=== PATIENT | male | born 1960 | race Caucasian/White ===

== ENCOUNTER 2019-10-05 12:56 | Outpatient (CLI) | payer MEDICAID ==
--- NOTE | 2019-10-05 21:15 | Consultation ---
DATE OF CONSULTATION: 10/05/2019 CONSULTING PHYSICIAN: Nnamdi Reynoso M.D. CHIEF COMPLAINT: Referral from Dr. Butt, GI doctor after having endoscopy and colonoscopy. He is not exactly sure what was the reason. PAST MEDICAL HISTORY: 1. Hypertension. 2. Hepatitis C. 3. BPH. PAST SURGICAL HISTORY: Hernia repair, gallbladder surgery, and appendectomy. MEDICATIONS: Please see medication reconciliation list. FAMILY HISTORY: No family history of malignancy. SOCIAL HISTORY: The patient drinks beer almost daily, about 3 or 4. He denies any tobacco usage, but he admits to using THC and also methamphetamine. He is homeless. ALLERGIES: No known allergies. REVIEW OF SYSTEMS: A 10-point review of systems was performed and pertinent positives in HPI. PHYSICAL EXAMINATION: GENERAL: A well-developed male, in no acute distress. HEENT: Normocephalic and atraumatic. Sclerae are anicteric. NECK: Supple. No obvious lymphadenopathy. CARDIOVASCULAR: Regular rate and rhythm. Plus S1 and S2. LUNGS: Clear to auscultation bilaterally. ABDOMEN: Positive bowel sounds. Soft and nontender. No rebound. No guarding. No peritoneal sign. EXTREMITIES: No cyanosis, no clubbing, no edema. ASSESSMENT AND PLAN: Hepatitis C. The patient never been treated for hepatitis C. The patient was told we are going to try to figure out why he is here, for which GI procedure he is here today and after we figure it out, he needs to come back for hepatitis C management and treatment. Meanwhile, we are going to try to get the records from Dr. Butt office regarding endoscopy and colonoscopy. It seems that he has a submucosal lesion. According to him, that they could not remove. So until we get those records exactly what kind of endoscopic ultrasound or what kind of procedure he needs, we are going to wait. He was told to come back in two weeks while we are trying to get the records from Dr. Butt's office. Nnamdi Reynoso M.D. DR: BHUPINDER JOB#: [id number] CC:
[2019-10-10] MEDS ORDERED: LISINOPRIL20 MG ORAL (14:27)
[2019-10-10] MEDS ORDERED: FLOMAX0.4 MG ORAL (14:27)
[2019-10-10] MEDS ORDERED: OMEPRAZOLE20 M2 ORAL (14:27)
[2019-10-10] MEDS ORDERED: GABAPENTIN300 MG ORAL (14:27)
[2019-10-10] MEDS ORDERED: EC-NAPROXEN500 MG PO (14:27)
== END 2019-10-05 14:56 | disposition home or self-care (01) ==
LOC: PAN 12:56
DX: B19.20 Unspecified viral hepatitis C without hepatic coma (principal); I10 Essential (primary) hypertension; Z90.89 Acquired absence of other organs; Z59.0 Homelessness
CPT/HCPCS: G0463

== ENCOUNTER 2019-10-19 12:57 | Outpatient (CLI) | payer MEDICAID ==
[~2019-10-19 12:57] MED LIST: EC-NAPROXEN500 MG PO; FLOMAX0.4 MG ORAL; GABAPENTIN300 MG ORAL; LISINOPRIL20 MG ORAL; OMEPRAZOLE20 M2 ORAL
--- NOTE | 2019-10-19 13:24 | General Progress Note ---
Assessment/Plan Assessment/Plan: hep C rectal sub mucosal lesion gastritis plan rectal EUS fu post above for hep c treatment Subjective ROS Limited/Unobtainable: Yes Allergies: Coded Allergies: No Known Allergies (Unverified , 10/10/19) Objective General Appearance: alert EENT: normal ENT inspection Neck: supple Cardiovascular: normal rate Respiratory/Chest: lungs clear Abdomen: normal bowel sounds, non tender, soft Extremities: non-tender Nnamdi Reynoso MD Oct 19, 2019 13:24
== END 2019-10-19 14:57 | disposition home or self-care (01) ==
LOC: PAN 12:57
DX: K29.70 Gastritis, unspecified, without bleeding (principal); Z86.19 Personal history of other infectious and parasitic diseases; K63.9 Disease of intestine, unspecified
CPT/HCPCS: 99212

== ENCOUNTER 2020-05-13 09:22 | Day surgery (SDC) | payer MEDICAID ==
[2020-05-13] VITALS (8 sets, daily range): BP systolic 145–166; BP diastolic 77–85
[~2020-05-13] VITALS: Ht 167.6 cm; Wt 63.5 kg
--- NOTE | 2020-05-13 06:45 | Anethesia Preoperative Eval ---
Anesthesia Pre-op PMH/ROS General Date of Evaluation: May 13, 2020 Time of Evaluation: 06:43 Anesthesiologist: jomar ASA Score: ASA 3 Mallampati Score Class I : Soft palate, uvula, fauces, pillars visible Class II: Soft palate, uvula, fauces visible Class III: Soft palate, base of uvula visible Class IV: Only hard plate visible Mallampati Classification: Class II Surgeon: yehuda Diagnosis: rectal submucosal polyps Surgical Procedure: eus Anesthesia History: none Social History: alcohol use Family History: no anesthesia problems Allergies: Coded Allergies: No Known Allergies (Unverified , 10/10/19) Medications: see eMAR Patient NPO?: Yes Past Medical History Cardiovascular: Reports: HTN Gastrointestinal/Genitourinary: Reports: GERD, other - hep c, gastritis, hiatal hernia, gallbladder dz PSxH Narrative: appendectomy, endoscopy Anesthesia Pre-op Phys. Exam Physician Exam Last Vital Signs Date Time Temp Pulse Resp B/P (MAP) Pulse Ox O2 Delivery O2 Flow Rate FiO2 05/13/20 09:53 97.5 48 18 145/79 99 Room Air Constitutional: NAD Neurologic: CN 2-12 intact Cardiovascular: RRR Respiratory: CTA Gastrointestinal: S/NT/ND Airway Exam Mallampati Score: Class II MO: limited Neck: flexible TMD: 2fb ROM: limited Anesthesia Pre-op A/P Labs Microbiology Date/Time Source Procedure Growth Status 05/10/20 09:20 Nasopharynx SARS-CoV-2 RdRp Gene Assay - Final Complete Risk Assessment & Plan Assessment: asa3 Plan: mac Status Change Before Surgery: No Pre-Antibiotics Drug: Shante Sauer MD May 13, 2020 06:45
[~2020-05-13 09:22] MED LIST changes: +Atropine Inj 1mg/10ml Syr IVP PRN; +DiphenhydrAMINE 50mg/ml Inj IVP PRN; +LR 1000ml 1,000 ML IVLG SCH; +Labetalol 5mg/ml 20ml vial IV PRN; +Midazolam 2mg/2ml Inj IVP PRN; +fentaNYL 100 mcg/2 mL IV PRN
[2020-05-13] MEDS ORDERED: LR 1000ml ONE (10:30)
[2020-05-13] MEDS ORDERED: Lidocaine 1% MPF 10mg/ml 5ml ONE (10:30)
--- NOTE | 2020-05-13 10:32 | Short Stay Surgery H&P ---
History of Present Illness History of Present Illness Chief Complaint see office consult note HPI Angelo Hutchins is a 60 year old male who was admitted on for Rectal Sub- Mucousal Polyps Patient History Allergies: Coded Allergies: No Known Allergies (Unverified , 10/10/19) Medication History Scheduled Gabapentin* (Gabapentin*), 900 MG ORAL THREE TIMES A DAY, (Reported) Lisinopril (Lisinopril*), 40 MG ORAL DAILY, (Reported) Naproxen (EC-Naproxen), 500 MG PO DAILY, (Reported) Omeprazole (Omeprazole), 20 MG ORAL DAILY, (Reported) Tamsulosin HCl (Flomax), 0.4 MG ORAL DAILY, (Reported) Physical Exam Vital Signs Last Vital Signs Date Time Temp Pulse Resp B/P (MAP) Pulse Ox O2 Delivery O2 Flow Rate FiO2 05/13/20 09:53 97.5 48 18 145/79 99 Room Air Plan Attestation Are the patient's medical conditions optimized for surgery? Nnamdi Reynoso MD May 13, 2020 10:32
--- NOTE | 2020-05-13 10:32 | Pre-Procedure Note/Attestation ---
Pre-Procedure Note/Attestation Complete Prior to Procedure Planned Procedure: not applicable Procedure Narrative: flex sig and rectal EUS Indications for Procedure Pre-Operative Diagnosis: rectal lesion Attestation I attest that I discussed the nature of the procedure; its benefits; risks and complications; and alternatives (and the risks and benefits of such alternatives), prior to the procedure, with the patient (or the patient's legal product support representative). I attest that, if there was a reasonable possibility of needing a blood transfusion, the patient (or the patient's legal product support representative) was given the [facility] standardized written summary, pursuant to the [place] Blood Safety Act ([place] Health and Safety Code # 1645, as amended). I attest that I re-evaluated the patient just prior to the surgery and that there has been no change in the patient's H&P, except as documented below: Nnamdi Reynoso MD May 13, 2020 10:32
--- NOTE | 2020-05-13 11:13 | Endoscopy Procedure Note ---
Endoscopy Procedure Note General Indication for Procedure: rectal polyp Procedures Performed: flexible sigmoidoscopy, other - EUS Operative Findings/Diagnosis: rectal polyp Specimen: yes Pt Tolerated Procedure Well: Yes Anesthesia Anesthesiologist: hero crespo Anesthesia: MAC Inserted Devices Implant(s) used?: No GI Core Measures 50 yrs or older w/o bx or poly: Not Applicable 10yrs. F/U recommended: Not Applicable Nnamdi Reynoso MD May 13, 2020 11:13
--- NOTE | 2020-05-13 11:57 | Immediate Post-Op Evaluation ---
Immediate Post-Op Evalulation Immediate Post-Op Evalulation Procedure: flexible sigmoidoscopy, rectal eus Date of Evaluation: May 13, 2020 Time of Evaluation: 11:30 IV Fluids: 550ml lr Blood Products: none Estimated Blood Loss: negligible Blood Pressure Systolic: 155 Blood Pressure Diastolic: 84 Pulse Rate: 54 Respiratory Rate: 18 O2 Sat by Pulse Oximetry: 100 Temperature (Fahrenheit): 98.1 Pain Score (1-10): 0 Nausea: No Vomiting: No Complications none Patient Status: awake, reacts, patent Hydration Status: adequate Drug: Shante Sauer MD May 13, 2020 11:57
--- NOTE | 2020-05-13 11:58 | 48 Hour Post Anesthesia Eval ---
Post Anesthesia Evaluation Procedure: flexible sigmoidoscopy, rectal eus Date of Evaluation: May 13, 2020 Time of Evaluation: 11:32 Blood Pressure Systolic: 158 0: 85 Pulse Rate: 41 Respiratory Rate: 18 Temperature (Fahrenheit): 98.1 O2 Sat by Pulse Oximetry: 100 Airway: patent Nausea: No Vomiting: No Pain Intensity: 0 Hydration Status: adequate Cardiopulmonary Status: stable Mental Status/LOC: patient returned to baseline Post-Anesthesia Complications: none Follow-up care needed: N/A Shante Al MD May 13, 2020 11:58
--- NOTE | 2020-05-13 13:00 | Procedure Note ---
DATE OF PROCEDURE: 05/13/2020 SURGEON: Nnamdi Reynoso MD PROCEDURE: Flexible sigmoidoscopy, endoscopic ultrasound, rectal ultrasound. INDICATION: Rectal polyp. The procedure, risks, benefits, and possible consequences, including hemorrhage, aspiration, perforation and infection, and alternative treatments, were explained to the patient/legal guardian by Dr. Nnamdi Reynoso and the patient/legal guardian understood and accepted these risks. PROCEDURE IN DETAIL: After informed consent was obtained and the patient was adequately sedated, first rectal exam was performed, which was positive for internal hemorrhoids. Also, we can palpate a large prostate on rectal examination. Then, the upper scope was advanced from the rectum into the almost transverse colon. Prep was good. The patient had diverticulosis in the left colon. One diminutive polyp was seen in the rectum, which was removed with cold biopsy forceps technique. Retroflexion of rectum showed evidence of large internal hemorrhoids. There was also a submucosal lesion in the rectum. At this time, we removed the upper scope and introduced an EUS scope. Submucosal lesion was actually enlarged prostate pushing against the rectum. SUMMARY OF FINDINGS: 1. One rectal polyp removed, see above for details. 2. Large internal hemorrhoids. 3. Diverticulosis of left colon. 4. Enlarged prostate pushing against the rectal wall. RECOMMENDATIONS: 1. Follow path. 2. The patient to follow up with Dr. Butt, primary GI doctor, for management of hepatitis C. 3. The patient is to be seen by the urologist for enlarged prostate. Nnamdi Reynoso M.D. DR: Alvaro JOB#: [id number] CC:
== END 2020-05-13 12:50 | disposition home or self-care (01) ==
LOC: GAS 09:22
DX: K62.1 Rectal polyp (principal); K64.8 Other hemorrhoids; K57.90 Diverticulosis of intestine, part unspecified, without perforation or abscess without bleeding; N40.0 Benign prostatic hyperplasia without lower urinary tract symptoms; I10 Essential (primary) hypertension; Z86.19 Personal history of other infectious and parasitic diseases; Z88.8 Allergy status to other drugs, medicaments and biological substances; Z90.89 Acquired absence of other organs; D12.7 Benign neoplasm of rectosigmoid junction
CPT/HCPCS: 45331; 45341; 94003; J2704; J7120; U0002; Z7512; 94150

== ENCOUNTER 2020-05-27 12:27 | Outpatient (CLI) | payer MEDICAID ==
[~2020-05-27 12:27] MED LIST changes: -Atropine Inj 1mg/10ml Syr IVP PRN; -DiphenhydrAMINE 50mg/ml Inj IVP PRN; -LR 1000ml 1,000 ML IVLG SCH; -Labetalol 5mg/ml 20ml vial IV PRN; -Midazolam 2mg/2ml Inj IVP PRN; -fentaNYL 100 mcg/2 mL IV PRN
--- NOTE | 2020-05-27 15:02 | General Progress Note ---
Subjective ROS Limited/Unobtainable: Yes Allergies: Coded Allergies: No Known Allergies (Unverified , 10/10/19) Objective General Appearance: alert EENT: normal ENT inspection Neck: supple Cardiovascular: normal rate Respiratory/Chest: decreased breath sounds Abdomen: normal bowel sounds, non tender, soft Extremities: non-tender Assessment/Plan Assessment/Plan: SUMMARY OF FINDINGS: 1. One rectal polyp removed, see above for details. 2. Large internal hemorrhoids. 3. Diverticulosis of left colon. 4. Enlarged prostate pushing against the rectal wall. patient to fu urology will start work up for Hep c treatment RTC after above Nnamdi Reynoso MD May 27, 2020 15:02
== END 2020-05-27 14:27 | disposition home or self-care (01) ==
LOC: PAN 12:27
DX: K62.1 Rectal polyp (principal); K64.8 Other hemorrhoids; K57.90 Diverticulosis of intestine, part unspecified, without perforation or abscess without bleeding; N40.0 Benign prostatic hyperplasia without lower urinary tract symptoms
CPT/HCPCS: 99212